=== PATIENT | female | born 1965 | race Caucasian/White ===

== ENCOUNTER → 2017-10-28 | Outpatient (CLI) | payer BC, OTHER ==
[~2017-10-28] MED LIST: ALEVE220 MG PO; HYDROCODON-ACE1 EAC7 PO; HYDROCODON-ACE1 EAC8; LEVAQUIN 500 M500 MG PO; LEVOTHYROXINE0.05 MG PO; LORTAB 5 MG/5001 TA1 PO; NABUMETONE 500500 M1 PO; NEURONTIN 300300 M1 PO; PERCOCET 5-3251 EACH PO; PERCOCET 7.5-31 EACH PO; PHENERGAN 25 MG25 M1 PO; TAMSULOSIN HCL0.4 M1 PER TUBE; TRADJENTA5 MG PO; TYLENOL PM; ULTRAM 50MG TAB50 MG PO; UNKNOWN DIABETIC MED
== END ==
LOC: M.CT 08:20
DX: K52.9 Noninfective gastroenteritis and colitis, unspecified (principal); K57.90 Diverticulosis of intestine, part unspecified, without perforation or abscess without bleeding; K35.2 Acute appendicitis with generalized peritonitis; R19.4 Change in bowel habit; Z90.49 Acquired absence of other specified parts of digestive tract

== ENCOUNTER 2019-08-01 14:30 | Emergency (ER) | payer BC, OTHER ==
[~2019-08-01] VITALS: Ht 165.1 cm; Wt 63.5 kg
[2019-08-01] MEDS ORDERED: LISINOPRIL2.5 MG PO (14:41)
[2019-08-01 15:54] VITALS: BP 186/88
== END 2019-08-01 15:56 | disposition home or self-care (01) ==
LOC: M.ERS 14:30
DX: S71.111A Laceration without foreign body, right thigh, initial encounter (principal); W25.XXXA Contact with sharp glass, initial encounter; Y93.89 Activity, other specified; Y92.89 Other specified places as the place of occurrence of the external cause; Y99.8 Other external cause status; Z90.49 Acquired absence of other specified parts of digestive tract